=== PATIENT | female | born 1940 | race Hispanic/Latino ===

== ENCOUNTER 2020-10-10 11:46 | Emergency (ER) | payer OTHER ==
[~2020-10-10] VITALS: Ht 157.5 cm; Wt 104.3 kg
[2020-10-10] MEDS ORDERED: DEXAMETHASONE SOD PHOS 10 MG/1 ML VIAL IV ONE (12:15)
[2020-10-10] MEDS ORDERED: ACETAMINOPHEN/CODEINE 300MG - 30MG TAB PO ONE (12:15)
[2020-10-10] MEDS ORDERED: DECADRON4 M1 PO (13:01)
== END 2020-10-10 13:32 | disposition home or self-care (01) ==
LOC: ER 12:12
DX: U07.1 COVID-19 (principal); R05 Cough; R06.02 Shortness of breath
CPT/HCPCS: 71045; 99283; J1100

== ENCOUNTER 2021-10-09 13:03 | Emergency (ER) | payer OTHER ==
[~2021-10-09] VITALS: Ht 157.5 cm; Wt 104.3 kg
[~2021-10-09 13:03] MED LIST: DECADRON4 M1 PO
[2021-10-09 15:28] VITALS: BP 160/68
== END 2021-10-09 15:29 | disposition home or self-care (01) ==
LOC: FSED 13:29
DX: R07.89 Other chest pain (principal); K29.60 Other gastritis without bleeding; I10 Essential (primary) hypertension; E03.9 Hypothyroidism, unspecified; R94.31 Abnormal electrocardiogram [ECG] [EKG]; I25.2 Old myocardial infarction
CPT/HCPCS: 71045; 80053; 82553; 84484; 85025; 93005; 99283; C9113